=== PATIENT | female | born 1935 | race Hispanic/Latino ===

== ENCOUNTER 2021-07-30 00:47 | Observation (INO) | payer OTHER ==
--- OUTSIDE RECORDS SUMMARY | 2021-07-30 00:51 | XMS REPORT | Continuity of Care Document ---
:1935 Author Organization [facility] t Address [facility] [place] [address] Castañeda [address] [place] [id number] Care Team Providers Name Role Phone Sonja-Mbayo_A_AH Attending Clinician Unavailable Sonja-Mbayo_A_AH Admitting Clinician Unavailable Payers Payer Name Policy Type Policy Number Effective Date Expiration Date S our[facility], located within [facility] OF [place] - [id number] 2019 [employer] 00:00:00 (MEDICARE REPLACEMENT/ADVANT AGE - HMO) Problems This patient has no known problems. Allergies, Adverse Reactions, Alerts This patient has no known allergies or adverse reactions. Medications This patient has no known medications. Procedures This patient has no known procedures. Encounters Start End Encounter Admission Attending Care Care Encounter Source Date/Time Date/Time Type Type Clinicians Facility Department ID 2019-10-06 2019-10-06 Outpatient Sonja-Mbayo [facility] [address] [place] [address] 07:12:00 07:12:00 _A_AH [id number] Family Practic e 2019-10-06 2019-10-06 Outpatient Sonja-Mbayo [facility] [address] [place] [address] 07:12:00 07:12:00 _A_AH [id number] Family Practic e 2019-10-06 2019-10-06 Outpatient Sonja-Mbayo [facility] [address] [place] [address] 07:12:00 07:12:00 _A_AH [id number] Family Practic e Results This patient has no known results.
[2021-07-30] MEDS ORDERED: METOPROLOL TAR 25 MG TAB ONE ×2 (03:06→03:08)
[2021-07-30] MEDS ORDERED: ASPIRIN EC 81 MG TAB PO ONE (03:06)
[2021-07-30] MEDS ORDERED: CLOPIDOGREL 75 MG TABLET ONE ×2 (03:07→08:15)
[2021-07-30] MEDS ORDERED: NA CHLORIDE 0.9% 1,000 ML ONE (03:08)
[2021-07-30] MEDS ORDERED: ENOXAPARIN 60 MG/0.6 ML SQ ONE ×2 (03:08→08:16)
--- NOTE | 2021-07-30 03:40 | EDPHYS ---
Physician Documentation [facility] Name: Kelly Nation Age: 85 yrs Sex: Female : 1935 Arrival Date: 07/30/2021 Time: 00:51 Bed 23 Private MD: VICKEY Physician Schuyler Lo HPI: 07/30 02:44 This 85 yrs old Female presents to ER via Ambulatory with complaints of Chest patel Pain, General Weakness. 02:44 The patient or guardian reports chest pain that is located primarily in the substernal patel area, anterior chest wall, bilaterally. Onset: 2 day(s) ago. The pain does not radiate. Associated signs and symptoms: Pertinent positives: lightheadedness, shortness of breath. The chest pain is described as a heaviness. Duration: The patient or guardian reports multiple episodes, that wax and wane. Modifying factors: The symptoms are alleviated by nothing. the symptoms are aggravated by nothing. The patient has not experienced similar symptoms in the past, but friend has similar symptoms. Historical: - Allergies: 03:34 Naproxen Sodium; tw5 - PMHx: 03:34 Diabetes - IDDM; Hyperlipidemia; Hypertension; tw5 - Immunization history:: Client reports receiving the 2nd dose of the Covid vaccine. - Social history:: Smoking status: Patient denies any tobacco usage or history of. - Family history:: not pertinent. ROS: 02:44 Constitutional: Negative for fever, chills, and weight loss, Eyes: Negative for injury, patel pain, redness, and discharge, ENT: Negative for injury, pain, and discharge, Neck: Negative for injury, pain, and swelling, Respiratory: Negative for shortness of breath, cough, wheezing, and pleuritic chest pain, Abdomen/GI: Negative for abdominal pain, nausea, vomiting, diarrhea, and constipation, Back: Negative for injury and pain, : Negative for injury, bleeding, discharge, and swelling, MS/Extremity: Negative for injury and deformity, Skin: Negative for injury, rash, and discoloration, Neuro: Negative for headache, weakness, numbness, tingling, and seizure, Psych: Negative for depression, anxiety, suicide ideation, homicidal ideation, and hallucinations, Allergy/Immunology: Negative for hives, rash, and allergies, Endocrine: Negative for neck swelling, polydipsia, polyuria, polyphagia, and marked weight changes, Hematologic/Lymphatic: Negative for swollen nodes, abnormal bleeding, and unusual bruising. 02:44 Cardiovascular: Positive for chest pain, of the chest. Exam: 02:44 Constitutional: This is a well developed, well nourished patient who is awake, alert, patel and in no acute distress. Head/Face: Normocephalic, atraumatic. Eyes: Pupils equal round and reactive to light, extra-ocular motions intact. Lids and lashes normal. Conjunctiva and sclera are non-icteric and not injected. Cornea within normal limits. Periorbital areas with no swelling, redness, or edema. ENT: Nares patent. No nasal discharge, no septal abnormalities noted. Tympanic membranes are normal and external auditory canals are clear. Oropharynx with no redness, swelling, or masses, exudates, or evidence of obstruction, uvula midline. Mucous membranes moist. Neck: Trachea midline, no thyromegaly or masses palpated, and no cervical lymphadenopathy. Supple, full range of motion without nuchal rigidity, or vertebral point tenderness. No Meningismus. Chest/axilla: Normal chest wall appearance and motion. Nontender with no deformity. No lesions are appreciated. Cardiovascular: Regular rate and rhythm with a normal S1 and S2. No gallops, murmurs, or rubs. Normal PMI, no JVD. No pulse deficits. Respiratory: Lungs have equal breath sounds bilaterally, clear to auscultation and percussion. No rales, rhonchi or wheezes noted. No increased work of breathing, no retractions or nasal flaring. Abdomen/GI: Soft, non-tender, with normal bowel sounds. No distension or tympany. No guarding or rebound. No evidence of tenderness throughout. Back: No spinal tenderness. No costovertebral tenderness. Full range of motion. Skin: Warm, dry with normal turgor. Normal color with no rashes, no lesions, and no evidence of cellulitis. MS/ Extremity: Pulses equal, no cyanosis. Neurovascular intact. Full, normal range of motion. Neuro: Awake and alert, GCS 15, oriented to person, place, time, and situation. Cranial nerves II-XII grossly intact. Motor strength 5/5 in all extremities. Sensory grossly intact. Cerebellar exam normal. Normal gait. Psych: Awake, alert, with orientation to person, place and time. Behavior, mood, and affect are within normal limits. 02:44 ECG was reviewed by the Attending Physician. 02:44 Musculoskeletal/extremity: DVT Exam: No signs of deep vein thrombosis. no pain, no swelling, no tenderness, negative Homans' sign noted on exam, no appreciated bluish discoloration, no erythema, no increased warmth. Vital Signs: 00:59 BP 164 / 53; Pulse 70; Resp 20; Temp 99.0; Pulse Ox 99% ; Weight 51.26 kg; Height 5 ft. da3 1 in. (154.94 cm); 03:34 BP 160 / 47; Pulse 58; Resp 17; Pulse Ox 99% on R/A; Pain 0/10; tw5 05:17 BP 110 / 87; Pulse 60; Resp 18; Pulse Ox 100% on R/A; tw5 07:00 BP 150 / 52; Pulse 65; Resp 12; Pulse Ox 98% on R/A; Weight 51.26 kg (R); Height 5 ft. ll3 4 in. (162.56 cm) (R); Pain 0/10; 07:00 Body Mass Index 19.40 (51.26 kg, 162.56 cm) ll3 MDM: 02:33 Patient medically screened. patel 02:47 Differential diagnosis: abnormal EKG, acute myocardial infarction, acute pericarditis, patel coronary artery disease chest wall pain, congestive heart failure hiatal hernia, pancreatitis, pericarditis, pleurisy, pneumonia, stable angina, unstable angina. HEART Score: History: Moderately Suspicious (1), ECG: Non specific repolarization disturbance / LBTB / PM (1), Age: > or = 65 years (2), Risk Factors: > or = 3 Risk factors for atherosclerotic disease (2), [Hypercholesterolemia] [Hypertension] [+ Family HX] Troponin: < or = 1 x Normal Limit (0). The patient was given aspirin in the Emergency Department. The patient's deep vein thrombosis risk score was calculated as follows: Total Score: 0. This patient was found to be at low risk for a deep vein thrombosis by using the Well's assessment criteria. The patient's pulmonary embolism risk score was calculated as follows: Total Score: 0-2 points. This patient was found to be at low risk for a pulmonary embolism by using the Well's assessment criteria. MARI Risk Score: 1 - patient's age is greater or equal to 65 years, 1 - Three or more CAD risk factors, 1- Known CAD, 1 - ASA use in past 7 days, 1 - Recent [<24hrs] Severe Angina, TOTAL SCORE = 5. Data reviewed: vital signs, nurses notes, lab test result(s), EKG, radiologic studies, plain films. Data interpreted: athletic monitor: rate is 70 beats/min, rhythm is regular, Pulse oximetry: on room air is 99 %. Test interpretation: by ED physician or midlevel provider: ECG, plain radiologic studies. Counseling: I had a detailed discussion with the patient and/or guardian regarding: the historical points, exam findings, and any diagnostic results supporting the discharge/admit diagnosis, lab results, radiology results, the need for further work-up and treatment in the hospital. 07/30 02:44 Order name: Basic Metabolic Panel [facility] 07/30 02:44 Order name: CBC with Diff; Complete Time: 05:00 [facility] 07/30 02:44 Order name: LFT's; Complete Time: 05:00 [facility] 07/30 02:44 Order name: Magnesium; Complete Time: 05:00 [facility] 07/30 02:44 Order name: NT PRO-BNP; Complete Time: 05:00 [facility] 07/30 02:44 Order name: Troponin (emerg Dept Use Only); Complete Time: 05:00 [facility] 07/30 02:44 Order name: Lipase; Complete Time: 05:00 [facility] 07/30 02:44 Order name: SARS-COV-2 RT PCR (Document "Date of Onset" if Symptomatic); Complete Time: [facility] 05:00 07/30 02:45 Order name: Basic Metabolic Panel; Complete Time: 05:00 [facility] 07/30 02:45 Order name: DD bb 07/30 02:46 Order name: D-Dimer; Complete Time: 05:00 [facility] 07/30 03:38 Order name: Protime (+INR); Complete Time: 05:00 [facility] 07/30 10:59 Order name: Troponin I [facility] 07/30 02:44 Order name: XRAY Chest (1 view) [facility] 07/30 02:44 Order name: EKG; Complete Time: 02:45 [facility] 07/30 02:44 Order name: Cardiac monitoring; Complete Time: 02:50 [facility] 07/30 02:44 Order name: EKG - Nurse/Tech; Complete Time: 03:38 [facility] 07/30 02:44 Order name: IV Saline Lock; Complete Time: 03:38 [facility] 07/30 03:44 Order name: CONS Physician Consult [facility] 07/30 03:56 Order name: Chest For Pe Angio [facility] 07/30 09:27 Order name: Diet Heart Healthy; Complete Time: 09:28 07/30 16:25 Order name: Glucose, Ancillary Testing [facility] 07/30 22:08 Order name: Glucose, Ancillary Testing [facility] 07/30 02:44 Order name: Labs collected and sent; Complete Time: 03:38 [facility] 07/30 02:44 Order name: O2 Per Protocol; Complete Time: 02:50 [facility] 07/30 02:44 Order name: O2 Sat Monitoring; Complete Time: 02:50 [facility] EC:44 Rate is 65 beats/min. Rhythm is regular. QRS [place] is Normal. PA interval is normal. QRS patel interval is prolonged at 152 msec. QT interval is normal. No Q waves. T waves are Normal. No ST changes noted. Clinical impression: NSR w/ Non-specific ST/T Changes and No evidence of ischemia. Interpreted by me. Reviewed by me. Administered Medications: 03:25 Drug: Aspirin Chewable Tablet 162 mg Route: PO; tw 05:16 Follow up: Response: No adverse reaction tw 03:25 Drug: Lopressor (metoprolol TARTRATE)) 25 mg Route: PO; tw 05:16 Follow up: Response: No adverse reaction tw 03:25 Drug: PlaVIX (clopidogrel) 150 mg Route: PO; tw 05:16 Follow up: Response: No adverse reaction tw 03:25 Drug: Lovenox (enoxaparin) 50 mg Route: Sub-Q; Site: right lower abdomen; tw5 05:16 Follow up: Response: No adverse reaction 03:26 Drug: NS 0.9% 1000 ml Route: IV; Rate: 125 ml/hr; Site: right forearm; tw 05:17 Follow up: IV Status: Infusion continued upon admission tw 05:16 Drug: Potassium Effervescent Tablet 25 mEq Route: PO; tw 05:16 Follow up: Response: No adverse reaction tw5 Disposition Summary: 07/30/21 03:39 Hospitalization Ordered Hospitalization Status: Observation [facility] Provider: Sebastián Emanuel cha Condition: Fair patel Problem: new patel Symptoms: have improved patel Bed/Room Type: Standard patel Location: Telemetry/MedSurg (observation)(07/30/21 16:50) ja1 Room Assignment: 402(07/30/21 16:50) jaVictoria Diagnosis - Chest pain, unspecified patel - Type 1 diabetes mellitus with hyperglycemia patel - Hypokalemia patel Forms: - Medication Reconciliation Form patel - SBAR form patel Signatures: Dispatcher [employer] EDMS Schuyler Lo MD MD cha Attema, Lee, DOPE DRY HOUSE OPERATOR-C DOPE DRY HOUSE OPERATOR-Cla1 Ele Meza, RN RN cg Blake Dickey RN RN ja1 Gold Scott, RN RN 3 Addis Shirley 5 Corrections: (The following items were deleted from the chart) 03:37 02:45 PROTIME (+INR)+COAG.LAB.BRZ ordered. EDNE EDMS 03:51 03:39 Telemetry/MedSurg (observation) patel cg 03:51 03:39 patel cg 16:50 03:51 BR ER HOLD cg ja1 16:50 03:51 ERHOLD- cg ja1
--- NOTE | 2021-07-30 03:40 | ER ---
Nurse's Notes [facility] Name: Kelly Nation Age: 85 yrs Sex: Female : 1935 Arrival Date: 07/30/2021 Time: 00:51 Bed 23 Private MD: Diagnosis: Chest pain, unspecified;Type 1 diabetes mellitus with hyperglycemia;Hypokalemia Presentation: 07/30 00:59 Chief complaint: Patient states: chest pain. Coronavirus screen: Vaccine status: da3 Patient reports receiving the 2nd dose of the covid vaccine. Ebola Screen: No symptoms or risks identified at this time. Initial Sepsis Screen: Does the patient meet any 2 criteria? No. Patient's initial sepsis screen is negative. Does the patient have a suspected source of infection? No. Patient's initial sepsis screen is negative. Risk Assessment: Do you want to hurt yourself or someone else? Patient reports no desire to harm self or others. Onset of symptoms was July 29, 2021 at 21:00. 00:59 Method Of Arrival: Ambulatory da3 00:59 Acuity: YASMEEN 3 da3 Triage Assessment: 00:59 General: Appears in no apparent distress. comfortable, Behavior is calm, cooperative. da3 Pain: Complains of pain in chest Pain currently is 0 out of 10 on a pain scale. Quality of pain is described as pressure. Cardiovascular: No deficits noted. Historical: - Allergies: 03:34 Naproxen Sodium; tw5 - PMHx: 03:34 Diabetes - IDDM; Hyperlipidemia; Hypertension; tw5 - Immunization history:: Client reports receiving the 2nd dose of the Covid vaccine. - Social history:: Smoking status: Patient denies any tobacco usage or history of. - Family history:: not pertinent. Screenin:34 Abuse screen: Denies threats or abuse. Denies injuries from another. Nutritional tw5 screening: No deficits noted. Tuberculosis screening: No symptoms or risk factors identified. Fall Risk Secondary diagnosis (15 points) IV access (20 points). Ambulatory Aid- Crutches/Cane/Walker (15 pts). Assessment: 03:33 Reassessment: Patient and/or family updated on plan of care and expected duration. Pain tw5 level reassessed. Patient is alert, oriented x 3, equal unlabored respirations, skin warm/dry/pink. Patient states feeling better. Patient states symptoms have improved. General: Reports " I feel fine now, the chest pain went away as I was waiting in the lobby". Pain: Denies pain. Pain does not radiate. Pain began 4 hours ago. Neuro: Level of Consciousness is awake, alert, obeys commands, Oriented to person, place, time, situation. Cardiovascular: Heart tones S1 S2 present. Respiratory: Airway is patent Trachea midline Respiratory effort is even, unlabored. Vital Signs: 00:59 BP 164 / 53; Pulse 70; Resp 20; Temp 99.0; Pulse Ox 99% ; Weight 51.26 kg; Height 5 ft. da3 1 in. (154.94 cm); 03:34 BP 160 / 47; Pulse 58; Resp 17; Pulse Ox 99% on R/A; Pain 0/10; tw5 05:17 BP 110 / 87; Pulse 60; Resp 18; Pulse Ox 100% on R/A; tw5 07:00 BP 150 / 52; Pulse 65; Resp 12; Pulse Ox 98% on R/A; Weight 51.26 kg (R); Height 5 ft. ll3 4 in. (162.56 cm) (R); Pain 0/10; 07:00 Body Mass Index 19.40 (51.26 kg, 162.56 cm) ll3 ED Course: 00:51 Patient arrived in ED. da3 00:59 Arm band placed on left wrist. da3 01:02 Triage completed. da3 01:19 EKG done, by ED staff, reviewed by Schuyler Lo MD. ds4 02:33 Schuyler Lo MD is Attending Physician. patel 03:04 Addis Shirley is Primary Nurse. tw5 03:25 XRAY Chest (1 view) In Process Unspecified. EDMS 03:26 SARS-COV-2 RT PCR (Document "Date of Onset" if Symptomatic) Sent. tw5 03:26 Lipase Sent. tw5 03:26 Basic Metabolic Panel Sent. tw5 03:26 Basic Metabolic Panel Sent. tw5 03:26 DD Sent. tw5 03:26 D-Dimer Sent. tw5 03:26 CBC with Diff Sent. tw5 03:26 LFT's Sent. tw5 03:26 Magnesium Sent. tw5 03:26 NT PRO-BNP Sent. tw5 03:26 Troponin (emerg Dept Use Only) Sent. tw5 03:34 Awaiting lab results. tw5 03:34 Patient has correct armband on for positive identification. Placed in gown. Bed in low tw5 position. Call light in reach. Side rails up X 1. Adult w/ patient. satellite project site monitor on. Pulse ox on. NIBP on. Door closed. Moved to private room. Warm blanket given. Verbal reassurance given. 03:34 Inserted saline lock: 22 gauge in left antecubital area, using aseptic technique. Blood tw5 collected. Patient maintains SpO2 saturation greater than 95% on room air. 03:38 Sebastián Emanuel MD is Hospitalizing Provider. patel 03:38 D-Dimer Sent. tw5 03:38 Basic Metabolic Panel Sent. tw5 03:38 Lipase Sent. tw 03:38 CBC with Diff Sent. tw 03:38 LFT's Sent. tw 03:38 Magnesium Sent. tw 03:38 NT PRO-BNP Sent. tw 03:38 Troponin (emerg Dept Use Only) Sent. tw 03:38 Protime (+INR) Sent. tw 05:16 No provider procedures requiring assistance completed. Patient admitted, IV remains in tw5 place. Administered Medications: 03:25 Drug: Aspirin Chewable Tablet 162 mg Route: PO; 05:16 Follow up: Response: No adverse reaction 03:25 Drug: Lopressor (metoprolol TARTRATE)) 25 mg Route: PO; 05:16 Follow up: Response: No adverse reaction 03:25 Drug: PlaVIX (clopidogrel) 150 mg Route: PO; 05:16 Follow up: Response: No adverse reaction 03:25 Drug: Lovenox (enoxaparin) 50 mg Route: Sub-Q; Site: right lower abdomen; 05:16 Follow up: Response: No adverse reaction 03:26 Drug: NS 0.9% 1000 ml Route: IV; Rate: 125 ml/hr; Site: right forearm; 05:17 Follow up: IV Status: Infusion continued upon admission 05:16 Drug: Potassium Effervescent Tablet 25 mEq Route: PO; 05:16 Follow up: Response: No adverse reaction Outcome: 03:39 Decision to Hospitalize by Provider. patel 05:16 Admitted to ER Hold. Please see [employer] for further documentation. tw5 05:16 Condition: stable 05:16 Instructed on the need for admit. 22:42 Patient left the ED. mw2 Signatures: Dispatcher [employer] EDSchuyler Oquendo MD MD cha Swanson, Donovan ds4 [place], MyRebecca mw2 Gold Scott, RN RN da3 Addis Shirley tw5 Dorene Goodwin RN RN ll3 Corrections: (The following items were deleted from the chart) 03:37 03:26 PROTIME (+INR)+COAG.LAB.BRZ drawn and sent. tw5 EDCT
[2021-07-30 03:50] LABS: Absolute Lymphocytes (CBC) 1.1 K/uL (0.7-4.9); Basophils % 0.8 % (0-1.3); Lymphocytes % 16.5 % (15.3-44.8); MPV 7.8 fL (7.6-11.3); RBC Red Blood Cell Count 3.86 M/uL (3.86-4.86)
[2021-07-30 03:51] LABS: Protime INR 0.97
[2021-07-30 04:02] LABS: Albumin 3.2 g/dL (3.4-5.0); Bilirubin Direct 0.2 mg/dL (0-0.2); Bilirubin Total 0.5 mg/dL (0.2-1.0); Magnesium 1.8 mg/dL (1.8-2.4); Potassium 3.4 mmol/L (3.5-5.1); Protein, Total 6.7 g/dL (6.4-8.2); Troponin (Emerg Dept Use Only) 0.02 ng/mL (0.0-0.045)
[2021-07-30] MEDS ORDERED: ACETAMINOPHEN 500 MG TAB PO PRN (04:45)
[2021-07-30] MEDS ORDERED: ONDANSETRON 4 MG/2 ML VIAL IV PRN (04:45)
[2021-07-30] MEDS ORDERED: MORPHINE 2 MG/ML SYR IV PRN (04:45)
[2021-07-30 05:04] VITALS: BMI 21.3
[2021-07-30] MEDS ORDERED: POTASSIUM 25 MEQ EFFERV TAB ONE (05:10)
--- NOTE | 2021-07-30 07:50 | RAD REPORT ---
EXAM DESCRIPTION: Sigrid Single View07/30/2021 3:25 am CLINICAL HISTORY: Chest pain COMPARISON: 2015 FINDINGS: The lungs appear clear of acute infiltrate. The heart is normal size IMPRESSION: No acute abnormalities displayed
[2021-07-30] MEDS ORDERED: PNEUMOCOCCAL VACCINE 0.5 ML IMVAC ONE (08:00)
[2021-07-30] MEDS ORDERED: INFLUENZA VACCINE (for 6+ mo) 0.5 ML DOSE IMVAC ONE (08:00)
[2021-07-30] MEDS ORDERED: AMLODIPINE 5 MG TAB ONE (08:15)
[2021-07-30] MEDS ORDERED: FAMOTIDINE 20 MG/2 ML VIAL IV ONE (08:15)
[2021-07-30] MEDS ORDERED: LOSARTAN POTASSIUM 50 MG TABLET ONE (08:15)
[2021-07-30] MEDS ORDERED: AMLODIPINE 5 MG TAB PO SCH (09:00)
[2021-07-30] MEDS: METOPROLOL TAR 50 MG TAB PO SCH (09:00)
[2021-07-30] MEDS ORDERED: LOSARTAN POTASSIUM 50 MG TABLET PO SCH (09:00)
[2021-07-30] MEDS ORDERED: ASPIRIN EC 81 MG TAB PO SCH (09:00)
[2021-07-30] MEDS: ASPIRIN EC 81 MG TAB PO SCH (09:00)
[2021-07-30] MEDS ORDERED: ENOXAPARIN 60 MG/0.6 ML SQ SCH (09:00)
[2021-07-30] MEDS: CLOPIDOGREL 75 MG TABLET PO SCH (09:00)
[2021-07-30] MEDS ORDERED: METOPROLOL TAR 50 MG TAB PO SCH (09:00)
[2021-07-30] MEDS: LOSARTAN POTASSIUM 50 MG TABLET PO SCH (09:00)
[2021-07-30] MEDS: AMLODIPINE 10 MG TAB PO SCH (09:00)
[2021-07-30] MEDS ORDERED: FAMOTIDINE 20 MG/2 ML VIAL IV SCH (09:00)
[2021-07-30] MEDS ORDERED: ATORVASTATIN 20 MG TAB ONE (10:16)
[2021-07-30] MEDS: ATORVASTATIN 10 MG TAB PO SCH (10:20)
[2021-07-30] MEDS ORDERED: ATORVASTATIN 10 MG TAB ONE (10:20)
--- NOTE | 2021-07-30 15:02 | RAD REPORT ---
EXAM DESCRIPTION: CT - Chest For Pe Angio - 07/30/2021 6:04 am CLINICAL HISTORY: The patient is 85 years old and is Female; chest pain TECHNIQUE: Axial computed tomographic angiography images of the chest with intravenous contrast. S agittal and coronal reformatted images were created and reviewed. This CT exam was performed using one or more of the following dose reduction techniques: automated exposure control, adjustment of t he mA and/or kV according to patient size, and/or use of iterative reconstruction technique. MIP re constructed images were created and reviewed. COMPARISON: CT chest January 15, 2016. FINDINGS: Pulmonary arteries: No PE identified. Aorta: No acute findings. No thoracic aortic aneurysm. Lungs: Areas of air trapping bilaterally. No consolidation. Pleural space: No pleural effusion or pneumothorax. Heart: Borderline cardiac enlargement. No significant pericardial fluid. No evidence of RV dysfunction. Mediastinum: No pneumomediastinum. Bones/joints: No vertebral compression fracture. No acute sternal fracture. Degenerative changes in the sternoclavicular joints. No dislocation. Soft tissues: Unremarkable. Lymph nodes: Unremarkable. No pathologically enlarged lymph nodes. IMPRESSION: No PE identified. Electronically signed by: Shanelle Patel MD 07/30/2021 5:40 AM DESULPHURING OPERATOR Due to temporary technical issues with the PACS/Fluency reporting system, reports are being signed by the in house radiologists without review as a courtesy to insure prompt reporting. The interpreting radiologist is fully responsible for the content of the report.
--- NOTE | 2021-07-30 15:58 | P.HP ---
Certification for Inpatient Patient admitted to: Observation With expected LOS: <2 Midnights Patient will require the following post-hospital care: Home Health Services Practitioner: I am a practitioner with admitting privileges, knowledge of patient current condition, hospital course, and medical plan of care. Services: Services provided to patient in accordance with Admission requirements found in Title 42 Section 412.3 of the Code of Federal Regulations Patient History Date of Service: 07/30/21 Primary Care Provider: Brendan Reason for admission: chest pain History of Present Illness: Patient with a history of atrial fib. She has been having sesar and tachycardia. Have been having some difficulty trying to adjust her medications to have the least symptoms. The patient has some chest pressure last night. Was brought to the ER by her son. She had a negative ct scan and troponins. Her coo & co founder shows a steady rhythm. No current chest pain. Resting comfortably Allergies naproxen sodium [From Aleve] Adverse Reaction (Mild, Verified 10/03/11 13:18) Hives No Allergy (Uncoded 01/15/16 16:41) Unknown Home Medications: Alendronate Sodium [Fosamax] 70 mg PO Q7D 07/30/21 Amlodipine Besylate 10 mg PO DAILY 07/30/21 Aspirin [Aspirin EC 81 MG] 81 mg PO DAILY 07/30/21 Losartan Potassium 100 mg PO DAILY 07/30/21 Metformin HCl 1,000 mg PO BID 07/30/21 Metoprolol Tartrate [Lopressor] 50 mg PO DAILY 07/30/21 Simvastatin 10 mg PO DAILY 07/30/21 - Past Medical/Surgical History Has patient received pneumonia vaccine in the past: No Diabetic: Yes - Social History Smoking Status: Never smoker Alcohol use: No CD- Drugs: No Caffeine use: Yes Review of Systems 10-point ROS is otherwise unremarkable Physical Examination - Vital Signs Temperature: 98.2 F Blood Pressure: 152/64 Pulse: 57 Respirations: 18 Pulse Ox (%): 96 - Physical Exam General: Alert, In no apparent distress HEENT: Atraumatic, PERRLA, Mucous membr. moist/pink, EOMI, Sclerae nonicteric Neck: Supple, 2+ carotid pulse no bruit, No LAD, Without JVD or thyroid abnormality Respiratory: Clear to auscultation bilaterally, Normal air movement Cardiovascular: Regular rate/rhythm, Normal S1 S2 Gastrointestinal: Normal bowel sounds, No tenderness Musculoskeletal: No tenderness Integumentary: No rashes Neurological: Normal gait, Normal speech, Normal strength at 5/5 x4 extr, Normal tone, Normal affect Lymphatics: No axilla or inguinal lymphadenopathy - Studies Laboratory Data (last 24 hrs) 07/30/21 03:23: PT 11.1, INR 0.97 07/30/21 03:23: WBC 6.70, Hgb 11.3 L, Hct 33.0 L, Plt Count 302 07/30/21 03:23: Sodium 131 L, Potassium 3.4 L, BUN 24 H, Creatinine 0.84, Glucose 177 H, Magnesium 1.8, Total Bilirubin 0.5, AST 18, ALT 18, Alkaline Phosphatase 101, Lipase 39 L 07/30/21 02:44: PT Cancelled, INR Cancelled Assessment and Plan - Problems (Diagnosis) (1) Chest pain Current Visit: Yes Status: Acute Plan: Possible a arrthymia. Will check serial troponins. Consult to Dr. Raymundo. Qualifiers: Chest pain type: unspecified Qualified Code(s): R07.9 - Chest pain, unspecified (2) Atrial fibrillation Current Visit: Yes Status: Chronic Plan: will keep her on once a day metoprolol. Qualifiers: Atrial fibrillation type: permanent Qualified Code(s): I48.21 - Permanent atrial fibrillation (3) Diabetes 1.5, managed as type 2 Current Visit: Yes Status: Chronic Plan: restart metformin tomorrow. will keep her on a mild sliding scale. (4) HTN (hypertension) Current Visit: Yes Status: Acute Plan: restart home medications. Adjust as necessary. Qualifiers: Hypertension type: primary hypertension Qualified Code(s): I10 - Essential (primary) hypertension (5) Hyperlipidemia Current Visit: Yes Status: Acute Plan: continue atorvastatin Discharge Plan: Home Plan to discharge in: 24 Hours - Advance Directives Does patient have a Living Will: No Does patient have a Durable POA for Healthcare: No - Code Status/Comfort Care Code Status Assessed: No Code Status: Full Code Physician Review: Patient Assessed, Agree with Above Assessment and Plan Critical Care: No Time Spent Managing Pts Care (In Minutes): 40
[2021-07-30] MEDS ORDERED: ENOXAPARIN 30 MG/0.3 ML SQ SCH (17:00)
[2021-07-30] MEDS ORDERED: ENOXAPARIN 30 MG/0.3 ML SQ ONE (17:06)
[2021-07-30] MEDS ORDERED: ACETAMINOPHEN 325 MG TABLET PO PRN (18:00)
[2021-07-31 04:02] LABS: Absolute Lymphocytes (CBC) 1.2 K/uL (0.7-4.9); Basophils % 0.9 % (0-1.3); Hematocrit 28.8 % (36.0-45.0); Lymphocytes % 27.4 % (15.3-44.8); MPV 7.6 fL (7.6-11.3); RBC Red Blood Cell Count 3.35 M/uL (3.86-4.86)
[2021-07-31 04:11] LABS: Potassium 3.5 mmol/L (3.5-5.1)
[2021-07-31] MEDS: ATORVASTATIN 10 MG TAB PO SCH (08:12)
[2021-07-31] MEDS: ASPIRIN EC 81 MG TAB PO SCH (08:12)
[2021-07-31] MEDS: CLOPIDOGREL 75 MG TABLET PO SCH (08:12)
[2021-07-31] MEDS: AMLODIPINE 10 MG TAB PO SCH (08:13)
[2021-07-31] MEDS: METOPROLOL TAR 50 MG TAB PO SCH (08:13)
[2021-07-31] MEDS: LOSARTAN POTASSIUM 50 MG TABLET PO SCH (08:13)
[2021-07-31] MEDS ORDERED: FAMOTIDINE 20 MG/2 ML VIAL IV SCH (09:00)
[2021-07-31 12:02] VITALS: BP 162/73; TEMP 97.9
[2021-07-31 13:20] VITALS: O2SAT 100
--- NOTE | 2021-07-31 13:28 | P.DS ---
Admission Date: 07/30/21 Discharge Date: 07/31/21 Primary Care Provider: Brendan Disposition: ROUTINE DISCHARGE Reason for Admission: chest pain - Problems (1) Chest pain Current Visit: Yes Status: Acute Qualifiers: Chest pain type: unspecified Qualified Code(s): R07.9 - Chest pain, unspecified (2) Atrial fibrillation Current Visit: Yes Status: Chronic Qualifiers: Atrial fibrillation type: permanent Qualified Code(s): I48.21 - Permanent atrial fibrillation (3) Diabetes 1.5, managed as type 2 Current Visit: Yes Status: Chronic (4) HTN (hypertension) Current Visit: Yes Status: Acute Qualifiers: Hypertension type: primary hypertension Qualified Code(s): I10 - Essential (primary) hypertension (5) Hyperlipidemia Current Visit: Yes Status: Acute Brief History of Present Illness: Patient with a history of atrial fib. She has been having sesar and tachycardia. Have been having some difficulty trying to adjust her medications to have the least symptoms. The patient has some chest pressure last night. Was brought to the ER by her son. She had a negative ct scan and troponins. Her water/wastewater engineer shows a steady rhythm. No current chest pain. Resting comfortably Hospital Course: Pateint was kept on telemetry. 2 negative troponins. No further chest pain. Will have her follow up in 1 week with Mrs Cardona. Will continue to adjust her cardiac meds. Thank you for allowing us to take part in her care. Vital Signs/Physical Exam: Temp Pulse Resp BP Pulse Ox 97.9 F 55 18 162/73 H 100 07/31/21 12:00 07/31/21 12:00 07/31/21 12:00 07/31/21 12:00 07/31/21 12:00 General: Alert, In no apparent distress HEENT: Atraumatic, PERRLA, EOMI Neck: Supple, JVD not distended Respiratory: Clear to auscultation bilaterally, Normal air movement Cardiovascular: Regular rate/rhythm, Normal S1 S2 Gastrointestinal: Normal bowel sounds, No tenderness Musculoskeletal: No tenderness Integumentary: No rashes Neurological: Normal speech, Normal tone, Normal affect Lymphatics: No axilla or inguinal lymphadenopathy Laboratory Data at Discharge: WBC 4.30 K/uL (4.3-10.9) D 07/31/21 03:21 Hgb 9.9 g/dL (12.0-15.0) L 07/31/21 03:21 Hct 28.8 % (36.0-45.0) L 07/31/21 03:21 Plt Count 258 K/uL (152-406) 07/31/21 03:21 PT 11.1 SECONDS (9.5-12.5) 07/30/21 03:23 INR 0.97 07/30/21 03:23 Sodium 134 mmol/L (136-145) L 07/31/21 03:21 Potassium 3.5 mmol/L (3.5-5.1) 07/31/21 03:21 BUN 18 mg/dL (7-18) 07/31/21 03:21 Creatinine 1.00 mg/dL (0.55-1.3) 07/31/21 03:21 Glucose 263 mg/dL (74-106) H 07/31/21 03:21 Magnesium 1.8 mg/dL (1.8-2.4) 07/30/21 03:23 Total Bilirubin 0.5 mg/dL (0.2-1.0) 07/30/21 03:23 AST 18 U/L (15-37) 07/30/21 03:23 ALT 18 U/L (12-78) 07/30/21 03:23 Alkaline Phosphatase 101 U/L (45-117) 07/30/21 03:23 Troponin I 0.02 ng/mL (0.0-0.045) 07/30/21 09:55 Lipase 39 U/L (73-393) L 07/30/21 03:23 Home Medications: Alendronate Sodium [Fosamax] 70 mg PO Q7D 07/30/21 Amlodipine Besylate 10 mg PO DAILY 07/30/21 Aspirin [Aspirin EC 81 MG] 81 mg PO DAILY 07/30/21 Losartan Potassium 100 mg PO DAILY 07/30/21 Metformin HCl 1,000 mg PO BID 07/30/21 Metoprolol Tartrate [Lopressor] 50 mg PO DAILY 07/30/21 Simvastatin 10 mg PO DAILY 07/30/21 Diet: Regular Activity: Ad janice Followup: Shanelle Cardona FNP [facility] [Primary Care Provider] - 1 Week Physician Review: Patient Assessed, Agree with Above Assessment and Plan Time spent managing pt's care (in minutes): 30
[2021-08-01] MEDS ORDERED: FAMOTIDINE 20 MG TAB PO SCH (09:00)
== END 2021-07-31 14:30 | disposition home or self-care (01) ==
LOC: ER 00:47 → ERHOLD 04:23 → 4TH 20:19
PROVIDERS: ADMIT Internal Medicine; ATTEND Internal Medicine
DX: R07.9 Chest pain, unspecified (principal); I48.21 Permanent atrial fibrillation; E13.65 Other specified diabetes mellitus with hyperglycemia; I10 Essential (primary) hypertension; E78.5 Hyperlipidemia, unspecified; E87.6 Hypokalemia; Z79.82 Long term (current) use of aspirin; Z88.8 Allergy status to other drugs, medicaments and biological substances; Z20.822 Contact with and (suspected) exposure to COVID-19
CPT/HCPCS: 96361; 93005 ×2; 85025 ×2; 80048 ×2; 36415 ×2; 83735; 85610; 82947 ×4; 85379; 80076; 84484 ×2; 83690; 83880; 71275; 71045; 96360; 96372; 99285; U0003; Q9967; J1650 ×3; J7030; G0378 ×3